=== PATIENT | female | born 2000 | race Caucasian/White ===

== ENCOUNTER → 2020-01-01 11:38 | Outpatient (BNVA) | payer BC, SELFPAY | PROVIDERS: Family Provider Nurse Practitioner Family; PCP Nurse Practitioner Family; Visit Provider Dermatology | DX: L70.0 Acne vulgaris (principal) | CPT/HCPCS: 80053 ==

== ENCOUNTER → 2021-03-19 09:12 | Outpatient (BNVA) | payer BC, SELFPAY | PROVIDERS: Family Provider Nurse Practitioner Family; PCP Nurse Practitioner Family; Visit Provider Nurse Practitioner Women's Health | DX: Z01.419 Encounter for gynecological examination (general) (routine) without abnormal findings (principal) | CPT/HCPCS: 88175 ==

== ENCOUNTER 2021-06-14 19:51 | Emergency (ER) | payer BC, SELFPAY ==
[2021-06-14 20:21] VITALS: BP 148/95; PULSE 55; RESP 12; TEMP 37.1; O2SAT 100; BMI 21.9
--- NOTE | 2021-06-14 21:42 | XRR_ITS ---
PROCEDURE INFORMATION: Exam: XR Right Elbow Exam date and time: 06/14/2021 9:53 PM Age: 20 years old Clinical indication: Pain; Swelling; Elbow; Right; Additional info: Swelling and pain at elbow TECHNIQUE: Imaging protocol: XR Right elbow. Views: 3 or more views. COMPARISON: No relevant prior studies available. FINDINGS: Bones/joints: No acute fracture dislocation or joint effusion. Soft tissues: Subcutaneous soft tissue haziness/edema along the medial aspect of the elbow and distal humeral region. No soft tissue gas. Soft tissue swelling at the olecranon region is also noted which may be related to contusion and/or liquor non bursitis. XR/XR elbow RT min 3V* [id number] IMPRESSION: No acute fracture. Soft tissue findings as above.
--- NOTE | 2021-06-14 21:43 | ED_ITS ---
HPI - Extremity Problem General: Chief complaint: Extremity Injury, Upper Stated complaint: R arm swollen Time Seen by Provider: 06/14/21 21:33 History of Present Illness: Patient is a 20-year-old female comes to the ED with bilateral arm pain. Most of her pain now is in her right arm and elbow. She states that last Tuesday she worked out and did a 10-minute intense tricep workout. Since workout she has been having pain in her bilateral triceps with limited range of motion due to pain. Worst amount of pain is in right elbow with some swelling noted. She says it hurts for her to fully extend right elbow. She has been applying cold pack and taking ibuprofen to help with pain. Her last dose of ibuprofen was this morning. Denies any other fall, injury or trauma to cause pain. Associated symptoms: Deny chest pain, fever(s) or rash Review of Systems Const: Denies: fever(s), chills or fatigue Eyes: Denies: change in vision or eye discomfort ENMT: Denies: throat pain, odynophagia, nasal discharge or nasal congestion Card: Denies: chest pain, palpitations, edema, swelling of feet/ankles, dyspnea on exertion or orthopnea Resp: Denies: dyspnea, productive cough or non-productive cough GI: Denies: abdominal pain, nausea, vomiting, diarrhea, constipation or hematochezia : Denies: flank pain, dysuria or hematuria Musc: Reports: extremity pain (Bilateral upper arm/tricep pain) and extremity swelling (Right elbow); Denies: neck pain or back pain Skin/Breast: Denies: rash or new lesions Neuro: Denies: headache(s), numbness in extremities or weakness in extremities PFS ED PFSH: Medical History No pertinent family history Surgical History No pertinent past surgical history Physical Exam Const: COMMON NORMALS: no acute distress, patient oriented x3, healthy appearing and alert GENERAL APPEARANCE: cooperative and comfortable HENMT: COMMON NORMALS: normocephalic HEAD & SCALP: normocephalic MOUTH: Normal oral and palatal mucosa present THROAT: posterior oropharynx normal and uvula midline Neck/C-Spine: COMMON NORMALS: supple GENERAL: Yes normal visual inspection Resp: COMMON NORMALS: normal respiratory effort, No retractions, No use of accessory muscles and clear to auscultation bilaterally AUSCULTATION: clear to auscultation bilaterally Cardio: COMMON NORMALS: regular rate, regular rhythm, S1 normal heart sound present, S2 normal heart sound present, No gallops present (Cardio), No clicks present (Cardio), No murmurs present (Cardio) and Peripheral pulses 2+ throughout RATE: regular rate RHYTHM: regular rhythm HEART SOUNDS: S1 normal heart sound present and S2 normal heart sound present PERIPHERAL PULSES: Peripheral pulses 2+ throughout GI: COMMON NORMALS: Normal to inspection, nondistended, normoactive bowel sounds present, Soft to palpation, non-tender and no masses PALPATION: Yes Soft to palpation : COMMON NORMALS: Yes no CVA tenderness BLADDER/KIDNEY EXAM: Yes no CVA tenderness Back/Pelvis: COMMON NORMALS: no CVA tenderness Extremity: NARRATIVE EXTREMITY EXAM: Patient has bilateral tricep muscle tenderness upon palpation. No erythema or warmth noted on bilateral upper arms or elbow. Right elbow does have a little bit of swelling and ecchymosis noted. She has full range of motion and bilateral arms. No concern for any septic joint. Neurovascular intact distally to both right and left upper extremities. Neuro: COMMON NORMALS: patient oriented x3 and moves all extremities SENSORIUM/ORIENTATION: Yes alert Skin: GENERAL SKIN EXAM: dry skin Course Vital Signs: Vital signs: Vital Signs Temperature 98.7 F 06/14/21 20:21 Pulse Rate 75 06/14/21 22:33 Respiratory Rate 18 06/14/21 22:33 Blood Pressure 122/74 06/14/21 22:33 Pulse Oximetry 98 06/14/21 22:33 MDM - Extremity (Nontraumatic) Medical Decision Making Patient is a 20-year-old female comes to the ED with bilateral tricep pain. Patient did an intense 10-minute tricep workout approximately 4 days ago and is having pain in her triceps. Her right arm hurts worse than left and she has some right elbow ecchymosis and swelling as well. Denies any other injury or trauma to cause symptoms. Vitals stable. Exam of patient shows some palpable tenderness over the triceps bilaterally. Patient does have some swelling and tenderness to the right elbow along with some ecchymosis seen. Right elbow x- ray showed no acute fractures. Patient was given a shot of Toradol to help with pain while here in the ED. Patient was diagnosed with triceps strain and was discharged home. She was told to follow-up with her PCP in the next 7 to 10 days for reevaluation and to take [id number] ibuprofen to help with pain. Return to ED precautions given. Patient understood and agree with plan. Lab Data Radiology Impressions Elbow X-Ray 06/14/21 21:42 IMPRESSION: No acute fracture. Soft tissue findings as above. Discharge Plan Discharge Patient Disposition: Home Clinical Impression: Triceps strain Qualifiers: Encounter type: initial encounter Laterality: unspecified laterality Qualified Code(s): S46.319A - Strain of muscle, fascia and tendon of triceps, unspecified arm, initial encounter Condition: Stable Discharge Orders: Discharge ED (Routine); Ordered 06/14/21 Ordered By: Del Russo Discharge Diet: Regular Discharge Activity: Increase activity as tolerated Patient Instructions: Muscle Strain (DC), Musculoskeletal Pain (ED) Activity Restrictions/Additional Instructions: Follow-up with medical provider as directed in the next 5 to 7 days for reevaluation. Take pbqn-[id number]-uhbqkuz ibuprofen up to 800 mg every 8 hours for pain and inflammation. Apply cold pack on arms and to her stretches for tricep daily. No workouts involving triceps until symptoms resolve. The ER or your medical provider if condition worsens. Please read and understand discharge instructions. Thank you for choosing [facility] for your healthcare needs today. Please realize this is an emergency room and that we are providing you with a medical screening exam and this may not be complete and all inclusive of all the testing and or work up that you may need to determine your ailment or severity of your illness. It is very important that you follow up as instructed or that you return to the Emergency Department should you have concerns or if your condition changes or worsens in any way. 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
[2021-06-14 22:33] VITALS: BP 122/74; PULSE 75; RESP 18; O2SAT 98
== END 2021-06-14 22:34 | disposition home or self-care (01) ==
PROVIDERS: Emergency Provider Physician Assistant
DX: S46.319A Strain of muscle, fascia and tendon of triceps, unspecified arm, initial encounter (principal); X58.XXXA Exposure to other specified factors, initial encounter
CPT/HCPCS: 73080; 99281

== ENCOUNTER 2022-11-16 11:01 | Outpatient (CLI) | payer SELFPAY ==
[2022-11-16 11:45] LABS: HF Add Manual Diff No
[2022-11-16 12:18] LABS: Estmated Average Glucose 94; Hemoglobin A1C 4.9 % (4.0-6.0)
[2022-11-16 12:38] LABS: Alanine Aminotransferase 16 U/L (0-33); Albumin Level 4.5 g/dL (3.5-5.2); Alkaline Phosphatase 52 U/L (35-105); Anion Gap 12.4 (5-19); Aspartate Amino Transferase 20 U/L (0-32); Blood Urea Nitrogen 14 mg/dL (6-20); Calcium 9.2 mg/dL (8.5-10.5); Carbon Dioxide 27 mmol/L (22-29); Chloride 104 mmol/L (98-107); Chol HDL Ratio 3.01 mg/dL (0.0-4.40); Cholesterol 208 mg/dL (0-200); Globulin 2.6 g/dL (1.3-4.6); Glomerular Filtration Rate 77.6 mL/min (90-130); Glucose 81 mg/dL (65-115); HDL Cholesterol 69 mg/dL (60-100); LDL Cholesterol Calculated 121 mg/dL (50-129); LDL HDL Ratio 1.75 RATIO (0.00-3.22); Osmolality Calculated 288 mOsm/kg (285-295); Potassium 4.4 mmol/L (3.5-5.1); Sodium 139 mmol/L (136-145); Thyroid Stimulating Hormone 2.25 uIU/mL (0.27-4.20); Total Bilirubin 0.7 mg/dL (0.15-1.2); Total Protein 7.1 g/dL (6.6-8.7); Triglycerides 92 mg/dL (0-150)
[2022-11-16 12:46] LABS: Basophils % 0.6 %; Eosinophils % 0.5 %; Hematocrit 40.1 % (36-47); Lymphocytes # 1.9 10^3/uL (0.8-4.8); Lymphocytes % 29.1 %; Mean Corpuscular HGB Conc 32.9 g/dL (30-55); Mean Corpuscular Hemoglobin 29.1 pg (27-33); Mean Corpuscular Volume 88.5 fl (85-98); Mean Platelet Volume 10.7 fL (7.4-10.4); Monocytes # 0.4 10^3/uL (0.2-0.9); Monocytes % 5.6 %; Neutrophils # 4.11 10^3/uL (1.8-7.7); Nucleated Red Blood Cells % 0 %; Platelet Count 274 10^3/cmm (157-399); Red Blood Count 4.53 10^6/uL (3.85-5.65); Red Cell Distribution Width 12.1 % (12.1-15.1); White Blood Count 6.42 10^3/uL (3.29-11.43)
== END 2022-11-16 11:02 | disposition home or self-care (01) ==
PROVIDERS: Visit Provider Dermatology
DX: Z01.89 Encounter for other specified special examinations (principal)
CPT/HCPCS: 36415

== ENCOUNTER 2023-01-20 09:25 | Outpatient (CLI) | payer OTHER, SELFPAY ==
[2023-01-20 11:33] LABS: Hepatitis C Virus Antibody Non-Reactive (Nonreactive)
[2023-01-20 11:34] LABS: Hepatitis B Surface Antigen Non-Reactive (Nonreactive)
[2023-02-10 10:31] LABS: HIV 1 & 2 Antibody Non-Reactive (Non-Reactiv); HIV 1 & 2 Antigen Non-Reactive (Non-Reactiv)
== END 2023-01-20 09:26 | disposition home or self-care (01) ==
LOC: LAB 09:27
PROVIDERS: Visit Provider Family Medicine
DX: Z01.89 Encounter for other specified special examinations (principal)
CPT/HCPCS: 86803; 87340; 87806

== ENCOUNTER → 2023-06-16 09:20 | Outpatient (BNVA) | payer OTHER, SELFPAY | PROVIDERS: Family Provider Nurse Practitioner Family; PCP Nurse Practitioner Family; Visit Provider Family Medicine | DX: Z34.00 Encounter for supervision of normal first pregnancy, unspecified trimester (principal); X58.XXXA Exposure to other specified factors, initial encounter; R30.0 Dysuria; E03.9 Hypothyroidism, unspecified | CPT/HCPCS: 80307; 81000; 81025; 84144; 84439; 84443; 84481; 84702; 85025; 86592; 86762; 86803; 86850; 86900; 87086; 87340; 87491; 87591; 87624; 87806 ==

== ENCOUNTER 2023-06-23 12:22 | Outpatient (CLI) | payer OTHER, SELFPAY ==
--- NOTE | 2023-06-23 12:30 | US_ITS ---
WS: [id number] EARLY OBSTETRICAL ULTRASOUND (<14 WEEKS). HISTORY: Dating US - 1-2 weeks from now COMPARISON: None available. Single intrauterine gestational sac is identified. Cardiac activity at 150 BPM. [place]-rump length thomas sures 1.9 cm which corresponds to a gestation of 8w3d. Normal-appearing yolk sac and amnion demonstra rosy. Minimal subchorionic hemorrhage. Maximal diameter 1.2 cm. No free fluid. LEFT ovarian corpus luteum 1.8 x 1.4 x 1.7 cm. Otherwise ovaries are negative. IMPRESSION: 1. Single intrauterine gestation of 8w3d with an EDC of 01/30/2024. 2. Normal cardiac activity.
== END 2023-06-23 12:23 | disposition home or self-care (01) ==
LOC: RAD 12:24
PROVIDERS: PCP Family Medicine; Visit Provider Family Medicine
DX: Z34.80 Encounter for supervision of other normal pregnancy, unspecified trimester (principal); Z3A.08 8 weeks gestation of pregnancy
CPT/HCPCS: 76801; 76817

== ENCOUNTER → 2023-08-18 12:41 | Outpatient (BNVA) | payer OTHER, SELFPAY | PROVIDERS: PCP Family Medicine; Visit Provider Family Medicine | DX: Z34.00 Encounter for supervision of normal first pregnancy, unspecified trimester (principal); Z3A.00 Weeks of gestation of pregnancy not specified; E03.9 Hypothyroidism, unspecified | CPT/HCPCS: 81511; 84439; 84443 ==

== ENCOUNTER 2023-09-16 14:15 | Outpatient (CLI) | payer OTHER, SELFPAY ==
--- NOTE | 2023-09-16 14:15 | USR_ITS ---
PROCEDURE INFORMATION: Exam: US After First Trimester, Transabdominal Exam date and time: 09/16/2023 2:42 PM Age: 22 years old Clinical indication: Screening exam; Routine US, uterus; Additional info: Anatomy US 20 weeks- next week if possible TECHNIQUE: Imaging protocol: Real-time transabdominal obstetrical ultrasound of the maternal pelvis and a second or third trimester with image documentation. COMPARISON: US OB <=14 wk fetus w transvag 06/23/2023 12:46 PM FINDINGS: Gestation: There is a single live intrauterine with a cephalic presentation. heart rate: 153 bpm presentation and position: Cephalic Placenta: Unremarkable. No subchorionic bleed. Placenta is posterior. Amniotic fluid (Qualitative): Amniotic fluid is normal for gestational age. Amniotic fluid index: JIL is 8.78 cm. ANATOMY: midline falx: Unremarkable cerebellum: Unremarkable lateral ventricles: Unremarkable cisterna magna: Unremarkable choroid plexus: Unremarkable face: Upper lip is unremarkable heart four-chamber view, heart size and position: Unremarkable heart right ventricular outflow tract: Unremarkable heart left ventricular outflow tract: Unremarkable kidneys: Left kidney is unremarkable. There is an extrarenal pelvis versus trace right hydronephrosis. stomach: Unremarkable urinary bladder: Unremarkable spine: Unremarkable Umbilical cord and insertion: Unremarkable upper limbs: Unremarkable lower limbs: Unremarkable external genitalia: Female BIOMETRY: Gestational age (AUA): 20 weeks and 1 day Estimated due date (AUA): February 02, 2024 Estimated weight: 346.68 g. 56th percentile Biparietal diameter (BPD): 4.65 cm. 20 w 0 d. 46 % percentile Head circumference (HC): 17.59 cm. 20 w 1 d. 39.3 % percentile Abdominal circumference (AC): 14.9 cm. 20 w 1 d. 44.7 % percentile Femur length (FL): 3.38 cm. 20 w 4 d. 59 % percentile HC/AC: 1.18. (Normal range: 1.07 - 1.25) FL/HC: 19.22. (Normal range: 16.67 - 19.87) FL/BPD: 72.69 FL/AC: 22.68 MATERNAL: Uterus: Unremarkable. Cervix: Unremarkable. Cervix is closed measuring about 3.3 cm in length Right ovary/adnexa: The right adnexa is unremarkable. Left ovary/adnexa: The left adnexa is unremarkable. Intraperitoneal space: No intraperitoneal free fluid. US/US OB >= 14 weeks fetus [id number] IMPRESSION: 1. Single live intrauterine measuring 20 weeks and 1 day with an estimated weight of 346 g. 2. Normal cardiac activity measuring 153 bpm. 3. The left kidney is normal. There is an extra renal pelvis on the right versus trace hydronephrosis. An extrarenal pelvis is favored.
== END 2023-09-16 14:16 | disposition home or self-care (01) ==
PROVIDERS: PCP Family Medicine; Visit Provider Family Medicine
DX: Z34.02 Encounter for supervision of normal first pregnancy, second trimester (principal); Z3A.20 20 weeks gestation of pregnancy
CPT/HCPCS: 76805

== ENCOUNTER → 2023-10-17 12:08 | Outpatient (BNVA) | payer OTHER, SELFPAY | PROVIDERS: PCP Family Medicine; Visit Provider Family Medicine | DX: Z34.00 Encounter for supervision of normal first pregnancy, unspecified trimester (principal); Z3A.00 Weeks of gestation of pregnancy not specified; E03.9 Hypothyroidism, unspecified | CPT/HCPCS: 82950; 84439; 84443 ==

== ENCOUNTER → 2023-12-08 11:02 | Outpatient (BNVA) | payer OTHER, SELFPAY | PROVIDERS: PCP Family Medicine; Visit Provider Family Medicine | DX: Z34.00 Encounter for supervision of normal first pregnancy, unspecified trimester (principal); Z51.81 Encounter for therapeutic drug level monitoring; E03.9 Hypothyroidism, unspecified | CPT/HCPCS: 84439; 84443; 85025 ==

== ENCOUNTER 2023-12-22 06:30 | Outpatient (CLI) | payer OTHER, SELFPAY ==
--- NOTE | 2023-12-22 06:30 | USR_ITS ---
PROCEDURE INFORMATION: Exam: US , Limited Exam date and time: 12/22/2023 6:48 AM Age: 23 years old Clinical indication: Screening exam; Routine US, uterus; Additional info: Measuring sga - jil, efw 2 weeks from now LABS AND CLINICAL REPORTS: Gestational age (Established): 34 w 0 d Estimated due date (Established): 02/02/2024 TECHNIQUE: Imaging protocol: Real-time ultrasound of the maternal uterus with image documentation. Exam focused on the clinical indication. COMPARISON: US OB >= 14 weeks fetus [id number] 09/16/2023 2:42 PM FINDINGS: Gestation: Intrauterine gestation is present. heart rate: 125 bpm presentation and position: Cephalic presentation. Amniotic fluid index: JIL is 8.14 cm. BIOMETRY: Estimated weight: 2409.94 g. EFW by AC, BPD, FL, [place] 1985, 54.3 percentile Biparietal diameter (BPD): 8.7 cm. EGA (BPD) is 35 w 1 d. 78.6 % percentile Head circumference (HC): 31.45 cm. EGA (HC) is 35 w 2 d. 46.2 % percentile Abdominal circumference (AC): 30.03 cm. EGA (AC) is 34 w 0 d. 53.7 % percentile Femur length (FL): 6.64 cm. EGA (FL) is 34 w 1 d. 45 % percentile FL/BPD: 76.32. (Normal range: 71 - 87) FL/AC: 22.11. (Normal range: 20 - 24) MATERNAL: Cervix: Cervical length measures 4 cm. US/US OB limited [id number] IMPRESSION: 1. JIL lower limits of normal. 2. Live intrauterine gestation with the above biometry.
== END 2023-12-22 06:31 | disposition home or self-care (01) ==
PROVIDERS: PCP Family Medicine; Visit Provider Family Medicine
DX: Z34.00 Encounter for supervision of normal first pregnancy, unspecified trimester (principal)
CPT/HCPCS: 76815

== ENCOUNTER → 2024-01-06 09:41 | Outpatient (BNVA) | payer OTHER, SELFPAY | PROVIDERS: PCP Family Medicine; Visit Provider Family Medicine | DX: Z34.90 Encounter for supervision of normal pregnancy, unspecified, unspecified trimester (principal) | CPT/HCPCS: 87081 ==

== ENCOUNTER 2024-01-20 06:17 | Outpatient (CLI) | payer OTHER, SELFPAY ==
--- NOTE | 2024-01-20 06:30 | USR_ITS ---
PROCEDURE INFORMATION: Exam: US , Limited Exam date and time: 01/20/2024 6:36 AM Age: 23 years old Clinical indication: Screening exam; Routine US, uterus; Additional info: Measuring small for gest age - jil/efw - today or tomorrow, pa not required terri 01/19/2024 LABS AND CLINICAL REPORTS: Gestational age (Established): 38 w 1 d Estimated due date (Established): 02/02/2024 TECHNIQUE: Imaging protocol: Real-time ultrasound of the maternal uterus with image documentation. Exam focused on the clinical indication. COMPARISON: OB limited [id number] 12/22/2023 6:48 AM FINDINGS: Gestation: Single intrauterine gestation at 38 weeks 1 day. heart rate: 128 bpm. Delete at Placenta: Placenta posterior fundal location. Amniotic fluid index: JIL is 4.17 cm. BIOMETRY: Estimated weight: 3253.94 g. EFW by AC, BPD, FL, HC, [place] 1985. Estimated weight 49 percentile. Biparietal diameter (BPD): 9.55 cm. EGA (BPD) is 39 w 0 d. 89.5 % percentile Head circumference (HC): 32.96 cm. EGA (HC) is 37 w 4 d. 17.8 % percentile Abdominal circumference (AC): 32.59 cm. EGA (AC) is 36 w 4 d. 22.8 % percentile Femur length (FL): 7.68 cm. EGA (FL) is 39 w 2 d. 79.7 % percentile HC/AC: 1.01. (Normal range: 0.89 - 1.06) FL/HC: 23.3. (Normal range: 20.86 - 22.8) FL/BPD: 80.42. (Normal range: 71 - 87) FL/AC: 23.57. (Normal range: 20 - 24) MATERNAL: Cervix: Cervix not well-visualized. Other findings: Estimated delivery 02/02/2024. US/ OB limited [id number] IMPRESSION: 1. Amniotic fluid index 4.[address] Miller was notified with these findings at the time of the study. 2. Viable intrauterine gestation at 38 weeks 1 day with estimated date delivery 02/02/2024.
== END 2024-01-20 06:18 | disposition home or self-care (01) ==
LOC: RAD 06:25
PROVIDERS: PCP Family Medicine; Visit Provider Family Medicine
DX: O36.5990 Maternal care for other known or suspected poor fetal growth, unspecified trimester, not applicable or unspecified (principal); O41.93X0 Disorder of amniotic fluid and membranes, unspecified, third trimester, not applicable or unspecified
CPT/HCPCS: 76815

== ENCOUNTER 2024-01-20 16:37 | Outpatient (CLI) | payer OTHER, SELFPAY ==
[2024-01-20 16:41] VITALS: BP 134/88; PULSE 56
[2024-01-20 16:56] VITALS: BP 116/71; PULSE 53
[2024-01-20 17:12] VITALS: BP 131/82; PULSE 72
== END 2024-01-20 17:15 | disposition home or self-care (01) ==
LOC: OPOB 16:37 → OBGYN 16:38
PROVIDERS: PCP Family Medicine; Visit Provider Family Medicine
DX: O26.899 Other specified pregnancy related conditions, unspecified trimester (principal); Z3A.00 Weeks of gestation of pregnancy not specified
CPT/HCPCS: 59025

== ENCOUNTER 2024-01-21 11:05 | Inpatient (IN) | payer OTHER, SELFPAY ==
[2024-01-21] VITALS (58 sets, daily range): BP systolic 106–160; BP diastolic 59–93; PULSE 47–92; RESP 17; TEMP 35.4–36.8; O2SAT 97–99; BMI 26.4
[2024-01-21] MEDS: miSOPROStol 100 mcg tablet 25 MCG VAGINAL ×2 (09:12→13:20)
[2024-01-21 09:25] LABS: Basophils % 0.5 %; Eosinophils % 0.5 %; Lymphocytes # 1.2 10^3/uL (0.8-4.8); Lymphocytes % 15.4 %; Mean Corpuscular HGB Conc 33.9 g/dL (30-55); Mean Corpuscular Hemoglobin 29.3 pg (27-33); Mean Corpuscular Volume 86.5 fl (85-98); Mean Platelet Volume 11.9 fL (7.4-10.4); Monocytes # 0.5 10^3/uL (0.2-0.9); Monocytes % 5.9 %; Neutrophils # 5.89 10^3/uL (1.8-7.7); Neutrophils % 77.4 %; Nucleated Red Blood Cells % 0 %; Platelet Count 170 10^3/cmm (157-399); Red Blood Count 4.16 10^6/uL (3.85-5.65); White Blood Count 7.61 10^3/uL (3.29-11.43)
--- NOTE | 2024-01-21 11:54 | P.HP_ITS ---
Providers/Chief Complaint 2 Primary Care Provider: Del Miller MD Chief Complaint: IOL History of Present Illness Ira Rosado is a 23 year old @ 38.2 wks by LMP c/with 8 wk US. Preg c/b hypothyroidism, intermittent bradycardia, oligohydramnios. The patient presented to the labor and delivery on the morning of 01/21/2024 for a scheduled induction due to new onset oligohydramnios that was found on ultrasound on 01/20/2024 with an JIL of 4.2. The patient is feeling well at this time. She denies any chest pains, shortness of breath, nausea, vomiting, diarrhea, constipation, dysuria, vaginal bleeding, leakage of fluid. Medications/Allergies Home Medications Medication Instructions Recorded Confirmed Last Taken Type levothyroxine 100 mcg tablet 100 mcg PO DAILY 06/16/23 01/19/24 Unknown History vitamins no.170-iron 1 tab PO DAILY 06/16/23 01/19/24 Unknown History fumarate 27 mg-folic acid 1 mg tablet Allergies Allergy/AdvReac Type Severity Reaction Status Date / Time No Known Allergies Allergy Verified 11/17/23 08:57 PFSH Acute 2 PFSH: Medical History No pertinent family history Hypothyroid Get's by US findings Surgical History No pertinent past surgical history Family History Father Hypertension Denies family history of Diabetes CAD (coronary artery disease) Hyperlipidemia Bleeding disorder Family history of premature coronary artery disease Lung disease Cancer Stroke Social History Smoking and tobacco/nicotine status: never used tobacco/nicotine Alcohol intake: never Substance/Drug Use: never 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 Female Reproductive History: : 1 Vitals/I&O/Wt Last Vital Signs Temp 95.7 F L 01/21/24 11:21 Pulse 56 L 01/21/24 09:45 Resp 17 01/21/24 08:53 BP 115/71 01/21/24 09:45 O2 Del Method Room Air 01/21/24 08:53 Weight last 48 hrs Weight 169 lb Physical Exam 2 Narrative: General: Alert and oriented x3 Eyes: Pupils equal round and reactive to light and accommodation Mouth: Mucous membranes moist, pharynx non-erythematous Cardiac: Regular rate and rhythm without murmurs Lungs: Clear to auscultation bilaterally without wheezes, crackles or rhonchi Abdomen: Soft, non-tender, fundus consistent with gestational age Extremities: Trace edema in the bilateral lower extremities Data 01/21/24 09:09 A&P Assessment and plan (1) Supervision of normal intrauterine in primigravida: heart tones are category 1 at this time. The patient will be started on Cytotec for induction of labor. She is 2 cm and 60% effaced with -3 station. The patient may have a laboring epidural once she gets to 3 cm if desired. Currently the patient is doing well and both she and her are in agreement with the current plan of care. (2) Oligohydramnios in third trimester: (3) Hypothyroid: Attestations 2 Medical Necessity Statement*: The patient will be here for greater than 2 midnights due to routine intrapartum and management of labor and delivery. Coding Level of Care Code Acute Code for Chg Fwd Diagnoses Supervision of normal intrauterine in primigravida Z34.00 Oligohydramnios in third trimester O41.03X0 Hypothyroid E03.9
[2024-01-21] MEDS: hyDROXYzine 25 mg Capsule 50 MG PO (15:02)
[2024-01-21] MEDS: fentaNYL 50 mcg/mL INJ 2mL IVP (15:02)
[2024-01-21] MEDS: lactated ringers 1,000 ML 999 ML IV (15:02)
[2024-01-21] MEDS: ondansetron 2 mg/ML SDV 2 mL 4 MG IVP ×2 (15:02→18:54)
--- NOTE | 2024-01-21 17:33 | P.ANESASSM_ITS ---
Pre-Anesthetic Assessment Height/Weight: Height 1.7 m Weight 76.657 kg Temp Pulse Resp BP O2 Del Method 95.7 F L 53 L 17 137/87 Room Air 01/21/24 11:21 01/21/24 15:32 01/21/24 15:02 01/21/24 15:32 01/21/24 15:41 Epidural Familial anesthetic complications: None (never had anesthesia) Was Beta Russel taken within 24 hours: N/A Was Clonidine taken within 24 hours: N/A Last intake: Solids: 1300 Social No alcohol and No tobacco Exam alert, oriented x 3, clear to auscultation bilaterally and regular rate & rhythm Airway Submandibular: within normal limits Cervical ROM: within normal limits Mallampati: Class I Comments: Comments: Front right glued in History/ROS No significant history except as noted and No significant complaints Pulmonary None reported CV/HEM Arrythmia (Bradycardia) None reported Hepatic None reported GI Gastroesophageal Reflux Disease Metabolic Thyroid Disease [facility] [place] None reported Neuropsych None reported Anesthetic Plan ASA status: 2 Anesthesia: Anesthesia Evaluation, General and Regional (specify below) (Epidural) Risk of > 500 ml blood loss (7ml/kg in children): Yes, adequate IV access and fluids planned Medications/Allergies Home Medications Medication Instructions Recorded Confirmed Last Taken Type levothyroxine 100 mcg tablet 100 mcg PO DAILY 06/16/23 01/19/24 Unknown History vitamins no.170-iron 1 tab PO DAILY 06/16/23 01/19/24 Unknown History fumarate 27 mg-folic acid 1 mg tablet Allergies Allergy/AdvReac Type Severity Reaction Status Date / Time No Known Allergies Allergy Verified 11/17/23 08:57 Current Medications Generic Name Dose Route Start Last Admin Trade Name Freq PRN Reason Stop Dose Admin Fentanyl 25 - 100 mcg 01/21/24 14:56 01/21/24 15:02 Fentanyl 50 Mcg/Ml Inj 2ml IVP 25 mcg Q1H PRN Administration SEVERE PAIN Hydroxyzine Pamoate 50 mg 01/21/24 08:52 01/21/24 15:02 Hydroxyzine 25 Mg Capsule PO 50 mg QID PRN Administration sleep, agitation or itching Lactated Ringer's 1,000 mls @ 999 mls/hr 01/21/24 08:52 01/21/24 15:46 Lactated Ringers IV 0 mls/hr .Q1H1M PRN Infusion Per L&D Rescitation Protocol Ondansetron HCl 4 mg 01/21/24 08:52 01/21/24 15:02 Ondansetron 2 Mg/Ml Sdv 2 Ml IVP 4 mg Q4H PRN Administration NAUSEA AND VOMITING PFSH Anesthesia Medical History No pertinent family history Hypothyroid Get's by US findings Surgical History No pertinent past surgical history Family History Father Hypertension Denies family history of Diabetes CAD (coronary artery disease) Hyperlipidemia Bleeding disorder Family history of premature coronary artery disease Lung disease Cancer Stroke Social History Smoking and tobacco/nicotine status: never used tobacco/nicotine Alcohol intake: never Substance/Drug Use: never 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
--- NOTE | 2024-01-21 18:30 | ANES.PROC ---
Anesthesia Procedures Procedure/Date: 01/21/24 Epidural: Time Out Performed: Yes Consents Signed: Procedure Consent and NPO Consent Consent: requested by attending/covering physician, from patient, risks and benefits reviewed and patient agrees to proceed Lumbar Level: L3-L4 Epidural position: sitting Epidural procedure: sterile prep of area (betadine), 1% lidocaine to numb the area (3 mLs), neg for paresthesia, test dose given, 1.5% xylocaine 1:200k epi (3 mLs/ 2 mLs), placed PCEA, no systemic response, sterile dressing applied, L.U.D. no apparent complications and 0.2% Ropiavacaine @ mls/hr (13) Additional Comments: PENELOPE 4cm, catheter threaded to 10cm. Negative for heme and CSF on aspiration. Patient tolerated well.
[2024-01-21] MEDS: ROPivacaine syringe 100 MG/50 ML SYRINGE 10 MG EPIDURAL (18:35)
[2024-01-21] MEDS: dextrose 5%-lactated ringers 1,000 ML 125 ML IV (19:51)
[2024-01-21] MEDS: terbutaline 1 mg/mL INJ 0.25 MG SUBCUT (20:17)
[2024-01-21] MEDS: metoclopramide 5 mg/mL SDV 2 mL 10 MG IVP (20:51)
[2024-01-21] MEDS: ceFAZolin 2,000 mg SDV 2000 MG IVP (20:51)
[2024-01-21] MEDS: famotidine 20 mg/2 mL INJ IVP (20:51)
[2024-01-21] MEDS: clindamycin 900 MG/50 ML PREMIX 100 MG IV (20:51)
--- NOTE | 2024-01-21 22:49 | PM.OP ---
Operative Report Date of procedure: January 21, 2024 Pre-op diagnosis: 1. Intrauterine at 38.2 weeks gestation 2. Hypothyroidism 3. Oligohydramnios 4. Maternal bradycardia 5. Suspected placental abruption with nonreassuring heart tones Post-op diagnosis: 1. Intrauterine status post primary low-transverse section at 38.2 weeks gestation 2. Hypothyroidism 3. Oligohydramnios 4. Maternal bradycardia 5. Suspected placental abruption with non-reassuring heart tones Procedure done: Primary low-transverse section Specimens removed/disposition: Placenta discarded Surgeon: Del Miller MD Estimated blood loss (mL): 300 Complications: None Findings: 1. Healthy infant female weighing 6 pounds 10 ounces with Apgars of 8 and 9 2. Intact placenta with peripheral umbilical cord insertion site. Signs of bruising noted under the edge of the placenta. Brief History: Ira Rosado is a 23 year old G1 NOW P1 status post primary low-transverse section @ 38.2 wks by LMP c/with 8 wk US. Preg c/b hypothyroidism, intermittent bradycardia, oligohydramnios. The patient presented to the labor and delivery on the morning of 01/21/2024 for a scheduled induction due to new onset oligohydramnios that was found on ultrasound on 01/20/2024 with an JIL of 4.2. She was noted to be 2 cm dilated with 60% effacement. She was started on Cytotec. She was given 1 dose and she did not make any change with this. A second dose was given after approximately 4 hours. The patient started arturo well on her own. Her contractions persisted after 4 hours so another dose was not given. She continued to contract regularly and they began to be every 1 to 2 minutes. The patient received a laboring epidural. Shortly after her epidural, heart tones began to show signs of late decelerations. She was given an IV fluid bolus and heart tones improved. As long as she stayed on her right side, the heart tones were reassuring. I was called to evaluate the patient. There was a prolonged deceleration as well with checking the patient and vaginal bleeding was noted. I did not feel any pulsatile mass overlying the head or under the amniotic membrane. The patient was still intact. Because she was having contractions every 1 minute with bleeding, there was concern that there could be a placental abruption. The patient was given a dose of terbutaline and her contractions only mildly decreased. Her bleeding unfortunately persisted. heart tones were relatively flat. Because of this there was concern that proceeding with a vaginal delivery would not be a safe option and that the best route of delivery would be a primary low-transverse section for the indication of placental abruption. I spoke with the patient and her and they were in agreement with the plan of care. Procedure: After informed consent was obtained, the patient was taken to the operating room and the patient was prepped and draped in a normal sterile fashion in the dorsal supine position.? A spinal was placed and adequate anesthesia was obtained.? At 21:01 on 01/21/2024 a Pfannenstiel skin incision was made and carried through to the underlying layer of fascia using a scalpel.? The fascial incision was then extended laterally using curved Mayos.? The fascia was then grasped with Rodolfo clamps and the underlying rectus muscles were dissected off taking care to avoid injury to the underlying tissues.? The peritoneum was entered bluntly with one digit.? It was then bluntly.? The bladder blade was placed and the vesicouterine peritoneum was well below the lower uterine segment of the uterus.? The uterine incision was made in the lower uterine segment in a transverse fashion with the scalpel at 2103 on 01/21/2024.? The amniotic membrane was entered bluntly and a small amount of clear fluid was noted.? Uterine pressure was placed and the infant's head delivered without complication at 2104 on 01/21/2024.? There was no nuchal cord.? The mouth and nose were suctioned.? The rest of the infant delivered without difficulty.? The took a breath immediately upon delivery.? The cord was clamped and cut and the infant was handed to the awaiting pediatric nurses.? The placenta was then manually expressed.? The uterus was exteriorized from the abdomen.? A wet lap was used to clear the uterus of clots and debris.? The bladder blade was reinserted and the uterine incision was closed using 0 chromic in a running locking fashion.? The uterus was noted to be firm.? A second layer of the same suture was used in the same manner.? Excellent hemostasis was obtained. Next the posterior cul-de-sac was inspected and was cleared of any blood. The gutters were cleared of any further clots and debris and the uterine incision was again inspected and hemostasis was noted.? The subfascial tissue was inspected for hemostasis and the peritoneum was re-approximated using 2-0 plain in a running fashion.? The fascia was then re-approximated using 0 Vicryl in a running fashion.? The subcutaneous tissue was inspected for hemostasis.? Anu's fascia was then re-approximated using 3-0 plain in a running fashion.? Good hemostasis was noted.? The subcutaneous tissue was then re-approximated using a subcuticular stitch.? The patient tolerated the procedure well and was recovered in stable condition.? Estimated blood loss was 300 mL. Urine in the Walker catheter was clear. The patient was taken to recovery in good condition.
[2024-01-22] VITALS (14 sets, daily range): BP systolic 98–132; BP diastolic 53–85; PULSE 52–81; RESP 16; TEMP 36–36.9
[2024-01-22] MEDS: dextrose 5%-lactated ringers 1,000 ML 125 ML IV (03:24)
[2024-01-22] MEDS: ketorolac 30 mg/mL INJ IVP ×3 (04:46→16:50)
[2024-01-22] MEDS: clindamycin 900 MG/50 ML PREMIX 100 MG IV ×3 (06:39→22:01)
--- NOTE | 2024-01-22 08:00 | ANE.PACU2 ---
Inpatient post-anesthesia follow up: Airway intact: Yes Vital signs: Temperature 97.3 F Pulse Rate 58 Respiratory Rate 16 Blood Pressure 135/84 Pulse Oximetry 98 Oxygen Delivery Me thod Room Air Oxygen Flow Rate Fraction of Inspir ed Oxygen Hydration adequate: Yes Nausea and vomiting: No Pain level: 1 Mental status: Baseline Epidural Start/End: Epidural Start Date: 01/21/24 Epidural Start Time: 17:43 Epidural End Date: 01/21/24 Epidural End Time: 22:49
[2024-01-22] MEDS: acetaminophen 325 mg Tablet 650 MG PO (09:35)
[2024-01-22] MEDS: simethicone 80 mg Chew PO (09:35)
[2024-01-22] MEDS: docusate sodium 100 mg Capsule PO ×2 (09:35→18:36)
[2024-01-22] MEDS: ferrous sulfate EC 325 mg Tablet PO ×2 (09:35→18:36)
[2024-01-22] MEDS: PRENATAL VIT NO.130/IRON/FOLIC 1 EACH TABLET PO (09:36)
--- NOTE | 2024-01-22 12:51 | P.PN_ITS ---
Subjective 2 Subjective: The patient is doing well at this time. She is ambulating, tolerating liquids by mouth and her bleeding is decreasing. Her pain is well-controlled. She is and this is starting to improve. Vitals/I&O/Wt Last Vital Signs Temp 98.3 F 01/21/24 22:45 Pulse 54 L 01/22/24 08:15 Resp 17 01/21/24 15:02 BP 126/82 01/22/24 08:15 Pulse Ox 99 01/21/24 22:45 O2 Del Method Room Air 01/21/24 22:45 01/21/24 01/22/24 01/22/24 22:59 06:59 14:59 Intake Total 1432.6 / 1432.6 943.75 / 2376.35 Output Total 900 / 900 Balance 1432.6 / 1432.6 43.75 / 1476.35 Weight last 48 hrs Weight 169 lb Physical Exam 2 Narrative: General: Alert and oriented x3 Cardiac: Regular rate and rhythm without murmurs Lungs: Clear to auscultation bilaterally without wheezes, crackles or rhonchi Abdomen: Soft, mild tenderness over uterus. The uterus is firm and 2 cm below the umbilicus. Bandage in place with minimal bloody drainage. Extremities: Trace edema in the bilateral lower extremities Urinary Catheter Management: Walker Latex: Cath Placed During This Visit: yes Reason for Continuing Indwelling Catheter: Accurate Measurement of Urinary Output in Critically Ill Patients Urinary Catheter Date of Insertion: 01/21/24 Urinary Catheter Time of Insertion: 19:30 Data 01/21/24 09:09 A&P Assessment and plan (1) S/P section: The patient is doing well overall at this time. We will continue with routine post- care. Infection risk and incision care discussed. Continue with current meds. Likely discharge tomorrow if she is feeling well at that time. Attestations 2 Medical Necessity Statement*: The patient continues to need inpatient care as she recovers from a C/S and her stay will cross two midnights. Coding Level of Care Code Acute Code for Chg Fwd Diagnoses S/P section Z98.891
[2024-01-22 13:32] LABS: Mean Corpuscular Hemoglobin 29.5 pg (27-33); Mean Corpuscular Volume 89.4 fl (85-98); Mean Platelet Volume 11.8 fL (7.4-10.4); Platelet Count 147 10^3/cmm (157-399); Red Blood Count 3.69 10^6/uL (3.85-5.65); Red Cell Distribution Width 13.1 % (12.1-15.1); White Blood Count 10.18 10^3/uL (3.29-11.43)
[2024-01-22] MEDS: oxyCODONE-APAP 5-325 mg Tablet 2 TAB PO (22:03)
[2024-01-23] VITALS (8 sets, daily range): BP systolic 118–136; BP diastolic 69–94; PULSE 52–72; RESP 16–17; TEMP 35.8–37.1
[2024-01-23] MEDS: oxyCODONE-APAP 5-325 mg Tablet 1 TAB PO ×3 (02:38→13:20)
--- NOTE | 2024-01-23 08:27 | P.PN_ITS ---
Subjective 2 Subjective: The patient is showing signs of improvement. Her bleeding is decreasing well. She is ambulating, voiding, passing gas and tolerating food by mouth. She is working on breast-feeding and this is improving overall. Vitals/I&O/Wt Last Vital Signs Temp 96.4 F L 01/23/24 04:04 Pulse 72 01/23/24 04:04 Resp 16 01/23/24 06:05 BP 123/85 01/23/24 04:04 Pulse Ox 99 01/21/24 22:45 O2 Del Method Room Air 01/22/24 18:44 01/22/24 01/23/24 01/23/24 22:59 06:59 14:59 Intake Total 1500 / 1600 Output Total 200 / 1050 Balance 1300 / 550 Physical Exam 2 Narrative: General: Alert and oriented x3 Cardiac: Regular rate and rhythm without murmurs Lungs: Clear to auscultation bilaterally without wheezes, crackles or rhonchi Abdomen: Soft, mild tenderness over uterus. The uterus is firm and 2 cm below the umbilicus. Incision is clean and dry without signs of infection or dehiscence. Extremities: Trace edema in the bilateral lower extremities Urinary Catheter Management: Walker Latex: Cath Placed During This Visit: yes, but has since been removed by the nurse Reason for Continuing Indwelling Catheter: Decision to DC Catheter Urinary Catheter Date of Insertion: 01/21/24 Urinary Catheter Time of Insertion: 19:30 Date Urinary Catheter Removed: 01/22/24 Time Urinary Catheter Discontinued: 16:00 Data 01/22/24 13:00 A&P Assessment and plan (1) S/P section: The patient had a section approximately 34 hours ago. She is continue to improve, however needs 1 more day for improvement overall. Will plan for discharge home tomorrow as long as she continues to improve. Attestations 2 Medical Necessity Statement*: The patient will be here for greater than 2 midnights due to routine intrapartum and management of labor delivery. Coding Level of Care Code Acute Code for Chg Fwd Diagnoses S/P section Z98.891
[2024-01-23] MEDS: ibuprofen 800 mg tablet PO ×3 (09:12→20:20)
[2024-01-23] MEDS: levothyroxine 100 mcg Tablet PO (09:13)
[2024-01-23] MEDS: docusate sodium 100 mg Capsule PO ×2 (09:13→18:13)
[2024-01-23] MEDS: ferrous sulfate EC 325 mg Tablet PO ×2 (09:13→18:13)
[2024-01-23] MEDS: PRENATAL VIT NO.130/IRON/FOLIC 1 EACH TABLET PO (09:13)
[2024-01-23] MEDS: oxyCODONE-APAP 5-325 mg Tablet 2 TAB PO (22:04)
[2024-01-24 04:03] VITALS: BP 111/71; PULSE 45
[2024-01-24 04:04] VITALS: TEMP 36.3
[2024-01-24 05:55] VITALS: RESP 15
[2024-01-24] MEDS: oxyCODONE-APAP 5-325 mg Tablet 1 TAB PO (05:55)
--- NOTE | 2024-01-24 08:13 | PM.DCS ---
Discharge Providers Date of Admission: 01/21/24 11:05 Date of Discharge: January 24, 2024 Attending Provider at Admission: Del Miller MD Attending Provider at Discharge: Del Miller MD Primary Care Provider: Del Miller MD Diagnoses at Discharge Discharge Diagnosis (1) S/P section: Status: Acute Other Information Additional DC diagnoses/information: 1. Intrauterine status post primary low-transverse section at 38.2 weeks gestation 2. Hypothyroidism 3. Oligohydramnios 4. Maternal bradycardia 5. Suspected placental abruption with non-reassuring heart tones 6. Delivery of healthy infant female weighing 6 pounds 10 ounces with Apgars of 8 and 9 Reason for Visit Reason for Visit: IOL Brief History: Ira Rosado is a 23 year old G1 NOW P1 status post primary low-transverse section @ 38.2 wks by LMP c/with 8 wk US. Preg c/b hypothyroidism, intermittent bradycardia, oligohydramnios. The patient presented to the labor and delivery on the morning of 01/21/2024 for a scheduled induction due to new onset oligohydramnios that was found on ultrasound on 01/20/2024 with an JIL of 4.2. She was noted to be 2 cm dilated with 60% effacement. Hospital Course Hospital Course The patient was started on Cytotec for induction of labor due to oligohydramnios. After 2 doses she received a laboring epidural. Shortly after this, the patient was having regular contractions every 1 minute and began to have bleeding. Late decelerations and prolonged decelerations were noted. Due to concern for placental abruption as the underlying cause with significant risk to mother and baby, it was decided to proceed with a primary low-transverse section. The surgery went well and there were no complications. , the patient is doing well. Her bleeding is decreasing well. She is ambulating, voiding, passing gas and tolerating food by mouth. Her pain is currently well-controlled. We discussed routine discharge instructions and care for her incision site. She will plan to follow-up with me next week to check her incision. Currently both the mother and infant are doing well. All questions were answered. The patient and her are in agreement with discharge home at this time. Physical Exam Narrative: General: Alert and oriented x3 Cardiac: Regular rate and rhythm without murmurs Lungs: Clear to auscultation bilaterally without wheezes, crackles or rhonchi Abdomen: Soft, mild tenderness over uterus. The uterus is firm and 2 cm below the umbilicus. Incision is clean and dry without signs of infection or dehiscence. Extremities: Trace edema in the bilateral lower extremities Urinary Catheter Management: Walker Latex: Cath Placed During This Visit: yes, but has since been removed by the nurse Reason for Continuing Indwelling Catheter: Decision to DC Catheter Urinary Catheter Date of Insertion: 01/21/24 Urinary Catheter Time of Insertion: 19:30 Date Urinary Catheter Removed: 01/22/24 Time Urinary Catheter Discontinued: 16:00 Discharge Data Studies Completed and Pending Laboratory Results WBC 10.18 10^3/uL (3.29-11.43) 01/22/24 13:00 RBC 3.69 10^6/uL (3.85-5.65) L 01/22/24 13:00 Hgb 10.90 g/dL (11.27-16.99) L 01/22/24 13:00 Hct 33.0 % (36-47) L 01/22/24 13:00 MCV 89.4 fl (85-98) 01/22/24 13:00 MCH 29.5 pg (27-33) 01/22/24 13:00 MCHC 33.0 g/dL (30-55) 01/22/24 13:00 RDW 13.1 % (12.1-15.1) 01/22/24 13:00 Plt Count 147 10^3/cmm (157-399) L 01/22/24 13:00 MPV 11.8 fL (7.4-10.4) H 01/22/24 13:00 Neut % (Auto) 77.4 % 01/21/24 09:09 Lymph % (Auto) 15.4 % 01/21/24 09:09 [place] % (Auto) 5.9 % 01/21/24 09:09 Eos % (Auto) 0.5 % 01/21/24 09:09 Baso % (Auto) 0.5 % 01/21/24 09:09 Neut # (Auto) 5.89 10^3/uL (1.8-7.7) 01/21/24 09:09 Lymph # (Auto) 1.2 10^3/uL (0.8-4.8) 01/21/24 09:09 [place] # (Auto) 0.5 10^3/uL (0.2-0.9) 01/21/24 09:09 Eos # (Auto) 0.0 10^3/uL (0.0-0.8) 01/21/24 09:09 Baso # (Auto) 0.0 10^3/uL (0.0-0.1) 01/21/24 09:09 Nucleated RBC % (auto) 0 % 01/21/24 09:09 Nucleated RBCs # 0.0 /100WBC 01/21/24 09:09 Blood Type O Positive 01/21/24 09:09 Rho(D) Type Rh positive 01/21/24 09:09 Antibody Screen Negative 01/21/24 09:09 Vitals Last Vital Signs Temp 97.3 F L 01/24/24 04:04 Pulse 45 L 01/24/24 04:03 Resp 15 01/24/24 05:55 BP 111/71 01/24/24 04:03 Pulse Ox 99 01/21/24 22:45 O2 Del Method Room Air 01/23/24 19:40 Discharge Plan Discharge Patient Disposition: Home Condition: Stable Prescriptions: New oxycodone-acetaminophen 5-325 mg Tablet 1 tab PO Q6H PRN (Reason: Moderate Pain) Qty: 20 0RF docusate sodium 100 mg Capsule 100 mg PO BID Qty: 20 0RF ferrous sulfate 325 mg (65 mg iron) Tablet,Delayed Release (Dr/Ec) 325 mg PO BIDWM Qty: 30 0RF ibuprofen 800 mg Tablet 800 mg PO TID Qty: 60 0RF Continued levothyroxine 100 mcg tablet 100 mcg PO DAILY PNV no.170-iron fum-folic acid 27 mg iron- 1 mg tablet 1 tab PO DAILY Discharge Orders: Discharge Order (Routine); Ordered 01/24/24 Ordered By: Del Miller Referrals: Del Miller MD [Primary Care Provider] - 02/01/24 9:00 am (Also make appt for 6 weeks ) Discharge Diet: Regular Discharge Activity: Limit activity as instructed Patient Instructions: Depression (DC), Opioid Safety (DC), Preeclampsia and Eclampsia After Delivery (GEN), Hemorrhage (DC), OB Discharge Report, OB Food/Drug Interaction Guide, Opioid Safety, OB [facility], OB Vaginal Deliveries, Abnormal Bleeding Activity Restrictions/Additional Instructions: Do not lift anything heavier than your in the car seat for the first 3 weeks, then gradually increase. No driving for 2 weeks Showers are preferred instead of baths for the first 6 weeks. Nothing per vagina for 6 weeks. If you have any concern for infection in your incision site, please seek medical attention right away. Discharge Attestations Time Spent in Discharge Care*: greater than 30 min Quality Metrics Clinical Quality Measures [ No reported AMI, CVA or VTE this stay] Coding Level of Care Code Acute Code for Chg Fwd Diagnoses S/P section Z98.891
[2024-01-24] MEDS: ferrous sulfate EC 325 mg Tablet PO (09:21)
[2024-01-24] MEDS: ibuprofen 800 mg tablet PO (09:21)
[2024-01-24] MEDS: docusate sodium 100 mg Capsule PO (09:21)
[2024-01-24] MEDS: levothyroxine 100 mcg Tablet PO (09:22)
[2024-01-24] MEDS: PRENATAL VIT NO.130/IRON/FOLIC 1 EACH TABLET PO (09:22)
[2024-01-24 09:34] VITALS: BP 135/84; PULSE 58
[2024-01-24 10:30] VITALS: BP 135/84; PULSE 58; RESP 16; O2SAT 98
== END 2024-01-24 10:30 | disposition home or self-care (01) | DRG 786 ==
LOC: OPOB 01-22 06:13 → OBGYN 01-22 06:13
PROVIDERS: Admitting Provider Family Medicine; PCP Family Medicine; Visit Provider Family Medicine
PROC: 10D00Z1 Extraction of Products of Conception, Low, Open Approach (ICD-10-PCS; CPT 59514; principal; 2024-01-21 20:50)
DX: O45.93 Premature separation of placenta, unspecified, third trimester (principal); O99.42 Diseases of the circulatory system complicating childbirth; O41.03X0 Oligohydramnios, third trimester, not applicable or unspecified; O76 Abnormality in fetal heart rate and rhythm complicating labor and delivery; Z3A.38 38 weeks gestation of pregnancy; Z37.0 Single live birth; O99.284 Endocrine, nutritional and metabolic diseases complicating childbirth; E03.9 Hypothyroidism, unspecified; I49.8 Other specified cardiac arrhythmias
CPT/HCPCS: 36415; 51702; 59025; 59409; 85025; 85027; 86850; 86900; 96372; 96374; 96376; 98960; 99211; J0131; J0690; J1885; J2274; J2405; J2765; J2795; J3010; J3105; J3490; J7030; J7120; J7121

== ENCOUNTER → 2024-02-24 10:58 | Outpatient (BNVA) | payer OTHER, SELFPAY | PROVIDERS: PCP Family Medicine; Visit Provider Family Medicine | DX: E03.9 Hypothyroidism, unspecified (principal) | CPT/HCPCS: 84439; 84443 ==

== ENCOUNTER 2024-08-16 14:03 | Outpatient (CLI) | payer SELFPAY ==
[2024-08-16 15:13] LABS: 25 Hydroxy Vitamin D 20 ng/mL (30-100)
== END 2024-08-16 14:04 | disposition home or self-care (01) ==
LOC: LAB 14:05
PROVIDERS: PCP Family Medicine; Visit Provider Dermatology
DX: Z13.9 Encounter for screening, unspecified (principal)

== ENCOUNTER → 2024-10-01 11:10 | Outpatient (BNVA) | payer SELFPAY | PROVIDERS: PCP Family Medicine; Visit Provider Family Medicine | DX: Z51.81 Encounter for therapeutic drug level monitoring (principal); R53.81 Other malaise; R53.83 Other fatigue; E03.9 Hypothyroidism, unspecified; E53.8 Deficiency of other specified B group vitamins | CPT/HCPCS: 80053; 82607; 84439; 84443; 84481; 85025 ==

== ENCOUNTER → 2024-11-19 16:13 | Outpatient (BNVA) | payer OTHER, SELFPAY | PROVIDERS: PCP Family Medicine; Visit Provider Family Medicine | DX: E03.9 Hypothyroidism, unspecified (principal) | CPT/HCPCS: 84439; 84443; 84481 ==

== ENCOUNTER → 2025-01-28 12:57 | Outpatient (BNVA) | payer OTHER, SELFPAY | PROVIDERS: PCP Family Medicine; Visit Provider Family Medicine | DX: E03.9 Hypothyroidism, unspecified (principal) | CPT/HCPCS: 84439; 84443 ==